=== PATIENT | male | born 1980 | race Caucasian/White ===

== ENCOUNTER 2016-04-09 | Emergency (ER) | payer OTHER ==
--- NOTE | 2016-04-09 13:59 | ED ---
General Adult HPI - General Chief complaint: Abdominal Pain Stated complaint: Flu, Abd Pain Time Seen by Provider: 04/09/16 13:47 Source: patient, RN notes reviewed Mode of arrival: ambulatory Limitations: no limitations - History of Present Illness Initial comments: Patient is a 36-year-old male who presents emergency room today with chief complaint of symptoms of nausea vomiting diarrhea over the last 4-5 days. He does admit that similar symptoms in the family over the last week. He states his symptoms seem to be improving. He states his had no nausea or vomiting today. States no diarrhea but still having some cramping abdominal pain. States he missed work over the week. Patient denies any other complaints associated symptoms. Patient denies any recent fever, chills, shortness of breath, chest pain, back pain, numbness or tingling, dysuria or hematuria, constipation, headaches or visual changes, or any other complaints. - Related Data Allergies Allergy/AdvReac Type Severity Reaction Status Date / Time No Known Allergies Allergy Verified 04/09/16 13:33 Review of Systems ROS Statement: Those systems with pertinent positive or pertinent negative responses have been documented in the HPI. ROS Other: All systems not noted in ROS Statement are negative. Past Medical History Past Medical History: No Reported History History of Any Multi-Drug Resistant Organisms: None Reported Past Surgical History: No Surgical Hx Reported Past Psychological History: No Psychological Hx Reported Smoking Status: Current every day smoker Past Alcohol Use History: Occasional Past Drug Use History: None Reported General Exam - General Exam Comments Initial Comments: General: The patient is awake and alert, in no distress, and does not appear acutely ill. Eye: Pupils are equal, round and reactive to light, extra-ocular movements are intact. No nystagmus. There is normal conjunctiva bilaterally. No signs of icterus. Ears, nose, mouth and throat: There are moist mucous membranes and no oral lesions. Neck: The neck is supple, there is no tenderness or JVD. Cardiovascular: There is a regular rate and rhythm. No murmur, rub or gallop is appreciated. Respiratory: Lungs are clear to auscultation, respirations are non-labored, breath sounds are equal. No wheezes, stridor, rales, or rhonchi. Gastrointestinal: Soft, non-distended, non-tender abdomen without masses or organomegaly noted. There is no rebound or guarding present. No CVA tenderness. Bowel sounds are unremarkable. Musculoskeletal: Normal ROM, no tenderness. Strength 5/5. Sensation intact. Pulses equal bilaterally 2+. Neurological: A&O x 3. CN II-XII intact, There are no obvious motor or sensory deficits. Coordination appears grossly intact. Speech is normal. Skin: Skin is warm and dry and no rashes or lesions are noted. Psychiatric: Cooperative, appropriate mood & affect, normal judgment. Limitations: no limitations Course Vital Signs 04/09/16 13:34 Temperature 97.6 F Pulse Rate 79 Respiratory 18 Rate Blood Pressure 144/72 O2 Sat by Pulse 97 Oximetry Medical Decision Making - Medical Decision Making Patient will be discharged home with medications of Zofran and Bentyl to use as needed. Advised to follow-up the family doctor return if any symptoms increase or worsen or for any other concerns. Disposition Clinical Impression: Nausea vomiting and diarrhea Disposition: HOME SELF-CARE Condition: Good Instructions: Acute Nausea and Vomiting (ED) Additional Instructions: Please use medication as discussed. Please follow-up with family doctor in the next 2 days of symptoms have not improved. Please return to emergency room if the symptoms increase or worsen or for any other concerns. Time of Disposition: 13:58
== END 2016-04-09 14:30 | disposition home or self-care (01) ==
CPT/HCPCS: 99283

== ENCOUNTER 2018-10-08 22:14 | Observation (INO) | payer OTHER ==
[2018-10-08] MEDS ORDERED: VANCOMYCIN IV PER PHARMACY 1 EACH MISC MISCELLANE PRN (23:34)
[2018-10-08] MEDS ORDERED: SODIUM CHLORIDE 0.9% 1,000 ML IV STA ×2 (23:34)
[2018-10-08] MEDS ORDERED: SODIUM CHLORIDE 0.9% 1,000 ML IV ONE (23:34)
--- NOTE | 2018-10-08 23:41 | ED ---
Upper Extremity HPI - General Chief Complaint: Extremity Injury, Upper Stated Complaint: Infection Time Seen by Provider: 10/08/18 22:47 Source: patient, RN notes reviewed, old records reviewed Mode of arrival: ambulatory Limitations: no limitations - History of Present Illness Initial Comments: This is a 38-year-old male the ER for evaluation. Patient comes in with postop issue. Patient has significant left pinky finger pain and swelling erythema and redness. Patient apparently had some surgical site, surgical site was repaired tenderness in his finger over a year ago now. No significant follow-up since. Patient denies any fevers. Does have some pain up into his Palm Complaint: Injury to:: left, finger -: days(s) Other Extremity Injury: Fingers: Left Other Injuries: none Handedness: left Place: home Severity scale (1-10): 7 Improves With: none Worsens With: none Associated Symptoms: denies other symptoms - Related Data Home Medications Medication Instructions Recorded Confirmed No Known Home Medications 04/09/16 10/08/18 Allergies Allergy/AdvReac Type Severity Reaction Status Date / Time No Known Allergies Allergy Verified 10/08/18 23:28 Review of Systems ROS Statement: Those systems with pertinent positive or pertinent negative responses have been documented in the HPI. ROS Other: All systems not noted in ROS Statement are negative. Past Medical History Past Medical History: No Reported History History of Any Multi-Drug Resistant Organisms: None Reported Past Surgical History: Orthopedic Surgery Past Psychological History: No Psychological Hx Reported Smoking Status: Current every day smoker Past Alcohol Use History: Occasional Past Drug Use History: Marijuana General Exam Limitations: no limitations General appearance: alert, in no apparent distress Head exam: Present: atraumatic, normocephalic, normal inspection Eye exam: Present: normal appearance, PERRL, EOMI. Absent: scleral icterus, conjunctival injection, periorbital swelling ENT exam: Present: normal exam, mucous membranes moist Neck exam: Present: normal inspection. Absent: tenderness, meningismus, lymphadenopathy Respiratory exam: Present: normal lung sounds bilaterally. Absent: respiratory distress, wheezes, rales, rhonchi, stridor Cardiovascular Exam: Present: regular rate, normal rhythm, normal heart sounds. Absent: systolic murmur, diastolic murmur, rubs, gallop, clicks GI/Abdominal exam: Present: soft, normal bowel sounds. Absent: distended, tenderness, guarding, rebound, rigid Extremities exam: Present: normal inspection, full ROM, normal capillary refill, other (Left Index finger swelling erythema and purulent drainage). Absent: tenderness, pedal edema, joint swelling, calf tenderness Back exam: Present: normal inspection Neurological exam: Present: alert, oriented X3, CN II-XII intact Psychiatric exam: Present: normal affect, normal mood Skin exam: Present: warm, dry, intact, normal color. Absent: rash Course Vital Signs 10/08/18 22:18 Temperature 97.8 F Pulse Rate 69 Respiratory 20 Rate Blood Pressure 117/71 O2 Sat by Pulse 96 Oximetry - Reevaluation(s) Reevaluation #1: 10/08/18 23:39 medical record is reviewed Reevaluation #2: 10/08/18 23:39 patient has pain control Medical Decision Making - Medical Decision Making 38 male the ER with postop infection of left Index finger. Patient will be admitted for IV antibiotics and orthopedic evaluation - Radiology Data Radiology results: report reviewed (X-ray hand negative for acute disease), image reviewed Disposition Clinical Impression: Infected puncture wound of left index finger, Cellulitis of left hand Disposition: ADMITTED IP TO THIS HOSP Condition: Good Is patient prescribed a controlled substance at d/c from ED?: No Referrals: Juan Carlos Blanchard MD [Primary Care Provider] - 1-2 days
[2018-10-08] MEDS ORDERED: KETOROLAC 30 MG/ML 1 ML VIAL IVP STA (23:58)
[2018-10-08] MEDS ORDERED: MORPHINE SULFATE 4 MG/ML SYRINGE IVP STA (23:58)
[2018-10-09] MEDS ORDERED: VANCOMYCIN 1,250 MG in SODIUM CHLORIDE 0.9% 250 ML IVPB ONE ×2
[2018-10-09 01:06] LABS: Basophils # (A) 0.1 k/uL (0-0.2); Basophils % (A) 1 %; Eosinophils # (A) 0.2 k/uL (0-0.7); Eosinophils % (A) 2 %; HCT 44.4 % (39.0-53.0); HGB 14.2 gm/dL (13.0-17.5); Lymphocytes # (A) 2.7 k/uL (1.0-4.8); Lymphocytes % (A) 28 %; MCH 30.6 pg (25.0-35.0); MCHC 31.8 g/dL (31.0-37.0); Mean Platelet Volume 6.9; Monocytes # (A) 0.5 k/uL (0-1.0); Monocytes % (A) 5 %; Neutrophils % (A) 63 %; Platelet Count 191 k/uL (150-450); RBC 4.63 m/uL (4.30-5.90); WBC 9.5 k/uL (3.8-10.6)
[2018-10-09 01:10] LABS: ALT 12 U/L (21-72); AST 23 U/L (17-59); African American GFR (CKD) >90 (>60 ml/min/1.73 sqM); Alkaline Phosphatase 65 U/L (38-126); Anion Gap 5 mmol/L; Blood Urea Nitrogen 14 mg/dL (9-20); Carbon Dioxide 27 mmol/L (22-30); Chloride 106 mmol/L (98-107); Glucose 81 mg/dL (74-99); Magnesium 2.1 mg/dL (1.6-2.3); Phosphorus 4.4 mg/dL (2.5-4.5); Potassium 4.1 mmol/L (3.5-5.1); Sodium 138 mmol/L (137-145); Total Bilirubin 0.3 mg/dL (0.2-1.3); Total Protein 6.6 g/dL (6.3-8.2)
--- NOTE | 2018-10-09 01:12 | XR ---
EXAM: XR Left Hand Complete, 3 or More Views CLINICAL HISTORY: Pain TECHNIQUE: Frontal, lateral and oblique views of the left hand. COMPARISON: No relevant prior studies available. FINDINGS: Bones/joints: No acute fracture or malalignment. Soft tissues: Soft tissue edema and trace gas in the index finger. No radiopaque foreign body. IMPRESSION: Soft tissue edema and trace gas in the index finger. No acute osseous abnormality.
[2018-10-09 01:14] LABS: INR 0.9 (<1.2); Partial Thromboplastin Time 23.8 sec (22.0-30.0); Prothrombin Time 10.2 sec (9.0-12.0)
[2018-10-09] MEDS: MORPHINE SULFATE 4 MG/ML SYRINGE IVP PRN ×2 (01:55→11:12)
[2018-10-09] MEDS ORDERED: NICOTINE 21MG/24HR PATCH TRANSDERM SCH (09:00)
[2018-10-09] MEDS ORDERED: VANCOMYCIN 1,250 MG in SODIUM CHLORIDE 0.9% 250 ML IVPB SCH ×2 (10:00→13:00)
[2018-10-09 10:12] VITALS: RESP 16
[2018-10-09 13:09] VITALS: BP 127/71; PULSE 54; TEMP 97.9
--- NOTE | 2018-10-09 13:49 | HP ---
HISTORY AND PHYSICAL CHIEF COMPLAINT: Infection in the left index finger. HISTORY OF PRESENT ILLNESS: This is the first admission for this 38-year-old white male. He injured his left hand with a radial saw roughly a month ago. He had surgery on it, and it is believed that he may have either a metallic or nylon foreign body. However, the wound has remained somewhat open and started to become more red, swollen and infected and oozing purulent material. He came into emergency room. It was felt that the site is probably infected. REVIEW OF SYSTEMS: He has had no fever, chills, neurologic problems, shortness of breath, cough, bronchitis, pneumonitis, asthma, hypertension, heart disease, murmurs, rheumatic fever, abdominal pain, nausea, vomiting, hematemesis, melena, hematochezia, jaundice, hematuria, renal failure, dysuria, frequency, diabetes, etc. Past medical history, family history, and personal and social histories are unremarkable. He is right-handed. He is not taking any medication. He is NOT ALLERGIC TO ANY MEDICATION. He has had no other surgery. He smokes about a pack and a half of cigarettes a day and he does work. PHYSICAL EXAMINATION: Blood pressure is 121/74 with a pulse of 78, respirations of 16, and he is afebrile. In general, he appears to be well developed, well nourished, in no acute distress. Skin color is normal. Skin is warm and dry. Lymph nodes are not enlarged. Head, ears, eyes, nose, mouth and throat are normal. Neck veins are not distended. Thyroid is not enlarged. Chest is clear. Cardiac exam is normal. Abdomen is soft and nontender. Extremities demonstrate an open and infected wound at the base of the left index finger and he has poor mobility in that finger. The tip is viable. Neurologically he is intact. IMPRESSION: Infected wound on the left index finger. PLAN: 1. Bed rest. 2. IV fluids. 3. IV antibiotics. 4. Consult with Infectious Disease and Orthopedics. MMODL / IJN: [id number] /
--- NOTE | 2018-10-09 14:01 | PN ---
PROGRESS NOTE DATE OF SERVICE: 10/09/2018. CHIEF COMPLAINT: Infected left index finger. HISTORY OF PRESENT ILLNESS: This gentleman is just about the same. He is still having quite a bit of discomfort. IV antibiotics have been started. PHYSICAL EXAMINATION: There is an open area in the palmar aspect of the left index finger which looks somewhat purulent, and there may be a foreign body visible. IMPRESSION: Infected left index finger after surgery for saw cut. PLAN: Continue with elevation, IV fluids, IV antibiotics, and consult with Orthopedics and Infectious Disease. MMODL / IJN: [id number] /
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
[2018-10-09 15:58] VITALS: BMI 23.5
--- NOTE | 2018-10-09 22:04 | CONS ---
CONSULTATION DATE OF SERVICE: 10/09/2018. REASON FOR CONSULTATION: Left index finger infection. HISTORY OF PRESENT ILLNESS: The patient is a 38-year-old, male who apparently did sustain injury to his left index finger in December of 2017 for which the patient was evaluated by hand surgeon at [facility]. The patient did have surgery done with a postop complication with an infection for which the patient says he received IV antibiotics for about a month. The patient is not very clear which exact bacteria was it or antibiotic he was receiving. Subsequently, did have 2 separate surgeries, one in March and one in April 2018. The patient is now coming to the [facility] ER with chief complaints of wound at the base of his left index finger from which the patient able to express some pus out. Has been complaining of pain to the left index finger, more of a throbbing pain 6 to 7/10, and no radiation. Currently with no significant surrounding swelling or redness. With these symptoms, the patient was evaluated by the ER physician. The patient did have x-rays of his left hand, which shows soft tissue edema and trace callus in the index finger. No radiopaque foreign body. The patient has been admitted to the hospital. Infectious disease and orthopedics has been consulted. The patient has been admitted. No fever has been recorded. The patient white count has been normal at 9.5 with no left shift and his creatinine is normal. The patient has been seen by orthopedic surgery who wanted the patient to follow up with his hand surgeon. REVIEW OF SYSTEMS: Positive points have been mentioned in HPI. Rest of the systems are negative. PAST MEDICAL HISTORY: Significant for left index finger injury with a postop complication with infection. PAST SURGICAL HISTORY: Multiple surgeries on left index finger at [facility]. SOCIAL HISTORY: Patient current everyday smoker. Occasionally drinks. Did admit to marijuana use. FAMILY HISTORY: No pertinent findings noticed. ALLERGIES: No known drug allergies. MEDICATIONS: Include the patient is currently on: Vancomycin 1250 mg every 8 hours. He is on nicotine patch, morphine sulfate, and Rocephin 1 g daily. PHYSICAL EXAMINATION: Blood pressure is 127/71 with a pulse of 54, temperature 97.9. He is 99% on room air. General description is a young male up in the bed in no distress. Respiratory system: Unlabored breathing. Clear to auscultation anteriorly. Heart S1, S2. Regular rate and rhythm. ABDOMEN: Soft, no tenderness. No guarding or rigidity. EXTREMITIES: No edema of the feet. Examination of the left hand index finger at the base of the palmar aspect did have small wound. I was unable to express any pus out. There was no redness. No foul smelling drainage. NEUROLOGICAL: Patient is awake, alert, oriented times three. Mood and affect normal. LABS: Blood culture obtained. Currently pending. Hemoglobin is 14, white count 9.5. BUN of 14, creatinine 0.97. DIAGNOSTIC IMPRESSION AND PLAN: Patient with left index finger with multiple surgeries in the outpatient setting and did have a history of infection requiring IV antibiotic. However, the patient is not sure about the name, now presents to the hospital with drainage. I was unable to express any pus out. There was no redness. No foul smelling drainage. Possibly soft tissue infection from a gram-positive skin marie. Clinically, no evidence of any deep infection in this patient with no fever or elevated white count. PLAN: 1. The patient is currently on IV vancomycin pharmacy to dose, target of 15 that should be continued while watching his kidney function closely. However, the patient says he has been referred to his orthopedic surgeon by Ortho. They will not do any surgery for him and he wants to go home. In that case, antibiotic will be switched over to Bactrim DS 1 b.i.d. for 10 days with instructions to follow up with his surgeon BARTOLO. 2. Local wound care with Aquacel Silver dressing. Thank you for this consultation. Prescription sent to the pharmacy. MMODL / IJN: [id number] /
== END 2018-10-09 16:20 | disposition left against medical advice (07) ==
LOC: EC 22:14 → 4SSUR 23:34 → 4MS4W 10-09 06:17
PROVIDERS: ADMIT Family Medicine; ATTEND Family Medicine
DX: L03.012 Cellulitis of left finger (principal); F17.210 Nicotine dependence, cigarettes, uncomplicated; Z98.890 Other specified postprocedural states
CPT/HCPCS: 96376 ×2; 96365; 96366; 96367; 96375; 99285; 80053; 83735; 84100; 85025; 85610; 85730; 87040; 73130; G0378 ×2; S4990; J3370; J2270; J0696; J1885

== ENCOUNTER 2019-09-03 17:51 | Emergency (ER) | payer OTHER ==
[2019-09-03] MEDS ORDERED: DIPH,PERTUS(ACELL)TETVAC-LF 0.5 ML VIAL IM ONE (17:55)
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
[2019-09-03 18:09] VITALS: RESP 18
[2019-09-03 18:30] LABS: ALT 17 U/L (4-49); AST 40 U/L (17-59); African American GFR (CKD) >90 (>60 ml/min/1.73 sqM); Albumin 4.2 g/dL (3.5-5.0); Alkaline Phosphatase 68 U/L (38-126); Amylase 89 U/L (30-110); Anion Gap 8 mmol/L; Blood Urea Nitrogen 13 mg/dL (9-20); Calcium 8.6 mg/dL (8.4-10.2); Carbon Dioxide 21 mmol/L (22-30); Chloride 105 mmol/L (98-107); Glucose 98 mg/dL (74-99); Non-African American GFR(CKD) >90 (>60 ml/min/1.73 sqM); Sodium 134 mmol/L (137-145); Total Bilirubin 0.6 mg/dL (0.2-1.3); Total Protein 7.1 g/dL (6.3-8.2)
[2019-09-03 18:37] LABS: Creatine Kinase 93 U/L (55-170)
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
[2019-09-03 18:41] LABS: Alcohol 110 mg/dL; Potassium 3.8 mmol/L (3.5-5.1)
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
[2019-09-03 18:51] LABS: Troponin I <0.012 ng/mL (0.000-0.034)
[2019-09-03 19:00] LABS: Basophils % (A) 1 %; Eosinophils # (A) 0.1 k/uL (0-0.7); Eosinophils % (A) 1 %; HCT 42.5 % (39.0-53.0); HGB 14.3 gm/dL (13.0-17.5); Lymphocytes # (A) 1.3 k/uL (1.0-4.8); Lymphocytes % (A) 21 %; MCH 33.1 pg (25.0-35.0); MCHC 33.5 g/dL (31.0-37.0); MCV 98.7 fL (80.0-100.0); Mean Platelet Volume 7.6; Monocytes # (A) 0.3 k/uL (0-1.0); Monocytes % (A) 6 %; Neutrophils # (A) 4.4 k/uL (1.3-7.7); Neutrophils % (A) 70 %; Platelet Count 180 k/uL (150-450); RBC 4.31 m/uL (4.30-5.90); RDW 12.6 % (11.5-15.5); WBC 6.3 k/uL (3.8-10.6)
[2019-09-03 19:16] LABS: Partial Thromboplastin Time 23.4 sec (22.0-30.0); Prothrombin Time 10.1 sec (9.0-12.0)
[2019-09-03 19:54] LABS: Appearance,Urine Clear (Clear); Bilirubin,Urine Negative (Negative); Blood,Urine Negative (Negative); Color,Urine Yellow; Glucose,Urine (UA) Negative (Negative); Ketones,Urine Negative (Negative); Leukocyte Esterase,Urine Negative (Negative); Nitrite,Urine Negative (Negative); Protein,Urine Negative (Negative); Specific Gravity,Urine 1.005 (1.001-1.035); Urobilinogen,Urine <2.0 mg/dL (<2.0)
[2019-09-03 19:55] LABS: Amphetamine Screen,Urine Detected (NotDetected); Barbiturate Screen,Urine Not Detected (NotDetected); Benzodiazepines Screen,Urine Not Detected (NotDetected); Cocaine Screen,Urine Not Detected (NotDetected); Methadone Screen, Urine Not Detected (NotDetected); Opiate Screen,Urine Not Detected (NotDetected); Oxycodone Screen, Urine Not Detected (NotDetected); Phencyclidine Screen,Urine Not Detected (NotDetected); Tricyclic Antidepressant,Urine Not Detected (NotDetected); Urn Cannabinoid Scrn Detected (NotDetected)
[2019-09-03 19:59] VITALS: BP 137/96; PULSE 83; TEMP 97.6
== END 2019-09-03 19:30 | disposition home or self-care (01) ==
LOC: EC 17:51
DX: S01.01XA Laceration without foreign body of scalp, initial encounter (principal); F17.200 Nicotine dependence, unspecified, uncomplicated; Z98.890 Other specified postprocedural states; V43.53XA Car driver injured in collision with pick-up truck in traffic accident, initial encounter; Y92.410 Unspecified street and highway as the place of occurrence of the external cause; Y93.89 Activity, other specified
CPT/HCPCS: 12001; 36415; 70450; 71045; 72125; 72170; 80053; 80306; 80320; 81003; 82150; 82550; 82553; 83605; 83690; 84484; 85025; 85610; 85730; 86850; 86900; 86901; 99291

== ENCOUNTER 2021-04-16 09:43 | Inpatient (IN) | payer OTHER ==
[2021-04-16] MEDS ORDERED: KETOROLAC 30 MG/ML 1 ML VIAL IVP STA (10:28)
[2021-04-16] MEDS ORDERED: HYDROmorphone 0.5 MG/0.5 ML SYRINGE IVP STA (10:44)
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
[2021-04-16 10:55] LABS: Basophils # (A) 0.1 k/uL (0-0.2); Basophils % (A) 1 %; Eosinophils # (A) 0.2 k/uL (0-0.7); Eosinophils % (A) 1 %; HCT 46.2 % (39.0-53.0); HGB 15.4 gm/dL (13.0-17.5); Lymphocytes # (A) 1.2 k/uL (1.0-4.8); Lymphocytes % (A) 9 %; MCH 32.8 pg (25.0-35.0); MCHC 33.3 g/dL (31.0-37.0); MCV 98.5 fL (80.0-100.0); Mean Platelet Volume 7.4; Monocytes # (A) 0.4 k/uL (0-1.0); Monocytes % (A) 3 %; Neutrophils # (A) 11.1 k/uL (1.3-7.7); Neutrophils % (A) 84 %; Platelet Count 214 k/uL (150-450); RBC 4.69 m/uL (4.30-5.90); RDW 12.7 % (11.5-15.5); WBC 13.2 k/uL (3.8-10.6)
[2021-04-16 11:14] LABS: ALT 12 U/L (4-49); AST 21 U/L (17-59); African American GFR (CKD) >90 (>60 ml/min/1.73 sqM); Albumin 4.2 g/dL (3.5-5.0); Alkaline Phosphatase 82 U/L (38-126); Anion Gap 7 mmol/L; Blood Urea Nitrogen 9 mg/dL (9-20); Calcium 9.1 mg/dL (8.4-10.2); Carbon Dioxide 28 mmol/L (22-30); Chloride 104 mmol/L (98-107); Glucose 109 mg/dL (74-99); Non-African American GFR(CKD) >90 (>60 ml/min/1.73 sqM); Potassium 4.5 mmol/L (3.5-5.1); Sodium 139 mmol/L (137-145); Total Bilirubin 0.7 mg/dL (0.2-1.3); Total Protein 7.2 g/dL (6.3-8.2)
[2021-04-16 11:20] LABS: Appearance,Urine Clear (Clear); Bilirubin,Urine Negative (Negative); Blood,Urine Negative (Negative); Color,Urine Yellow; Glucose,Urine (UA) Negative (Negative); Ketones,Urine Negative (Negative); Leukocyte Esterase,Urine Negative (Negative); Nitrite,Urine Negative (Negative); PH, Urine 5.5 (5.0-8.0); Protein,Urine Negative (Negative); Specific Gravity,Urine 1.017 (1.001-1.035); Urobilinogen,Urine <2.0 mg/dL (<2.0)
[2021-04-16 11:23] LABS: Amphetamine Screen,Urine Not Detected (NotDetected); Barbiturate Screen,Urine Not Detected (NotDetected); Benzodiazepines Screen,Urine Not Detected (NotDetected); Cocaine Screen,Urine Not Detected (NotDetected); Methadone Screen, Urine Not Detected (NotDetected); Opiate Screen,Urine Not Detected (NotDetected); Oxycodone Screen, Urine Not Detected (NotDetected); Phencyclidine Screen,Urine Not Detected (NotDetected); Tricyclic Antidepressant,Urine Not Detected (NotDetected); Urn Cannabinoid Scrn Detected (NotDetected)
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
[2021-04-16] MEDS ORDERED: PIPERACILLIN-TAZOBACTAM 3.375 GM in SODIUM CHLORIDE 0.9% 100 ML IVPB STA (13:17)
[2021-04-16] MEDS: MORPHINE SULFATE 4 MG/ML SYRINGE IVP PRN ×3 (16:51→23:26)
[2021-04-16] MEDS: NICOTINE 14MG/24HR PATCH TRANSDERM SCH (16:53)
[2021-04-16] MEDS: PIPERACILLIN-TAZOBACTAM 3.375 GM in SODIUM CHLORIDE 0.9% 100 ML IVPB SCH (23:28)
[2021-04-17] MEDS: MORPHINE SULFATE 4 MG/ML SYRINGE IVP PRN ×3 (02:04→07:31)
[2021-04-17] MEDS: PIPERACILLIN-TAZOBACTAM 3.375 GM in SODIUM CHLORIDE 0.9% 100 ML IVPB SCH ×2 (04:53→17:46)
[2021-04-17] MEDS ORDERED: ONDANSETRON 4 MG/2 ML VIAL IVP ONE ×2 (07:27→13:40)
[2021-04-17] MEDS ORDERED: HYDROmorphone 0.5 MG/0.5 ML SYRINGE IVP PRN (07:27)
[2021-04-17] MEDS ORDERED: LIDOCAINE 1% (10MG/ML) FOR IV START INTRADERMA PRN (07:27)
[2021-04-17] MEDS ORDERED: DEXAMETHASONE SOD PHOSPHATE 4 MG/ML 1 ML VIAL IV ONE (07:27)
[2021-04-17] MEDS: NICOTINE 14MG/24HR PATCH TRANSDERM SCH (07:34)
[2021-04-17] MEDS: LACTATED RINGERS 1,000 ML IV SCH (07:35)
[2021-04-17] MEDS: HYDROmorphone 1 MG/ML 1 ML SYRINGE IVP PRN ×4 (09:59→21:57)
[2021-04-17] MEDS ORDERED: KETOROLAC 30 MG/ML 1 ML VIAL IVP PRN (10:00)
--- NOTE | 2021-04-17 11:31 | P.GSHP ---
History of Present Illness H&P Date: 04/17/21 CHIEF COMPLAINT: Perianal pain HISTORY OF PRESENT ILLNESS: This is a 41-year-old male who presents to the hospital with complaints of 2 days of her anal pain. He reports the pain is worsening over the last 24 hours. He reports pain worsens with straining to have a bowel movement. He has been having loose stools. He's never had an abscess this before. He also noted an abscess on the neck area about a centimeter in size. Both areas there is no drainage noted. They are very tender with palpation. Patient reports a prior abscess on his right forearm. This appeared after his new tattoos. Denies any history of diabetes. Computed tomography scan abdomen and pelvis shows fluid collection within the anal/rectal region measuring 2.1 cm which may reflect abscess. Patient started on IV an tibiotics. PAST MEDICAL HISTORY: none PAST SURGICAL HISTORY: See list. MEDICATIONS: See list. ALLERGIES: See list. SOCIAL HISTORY: No illicit drug use. REVIEW OF SYSTEMS: CONSTITUTIONAL: Denies fever or chills. HEENT: Denies blurred vision, vision changes, or eye pain. Denies hemoptysis CARDIOVASCULAR: Denies chest pain or pressure. RESPIRATORY: No shortness of breath. GASTROINTESTINAL: See HPI for pertinent findings HEMATOLOGIC: Denies bleeding disorders. GENITOURINARY: Denies any blood in urine or increased urinary frequency. SKIN: Denies pruitis. Denies rash. PHYSICAL EXAM: VITAL SIGNS: Reviewed GENERAL: Well-developed in no acute distress. HEENT: No sclera icterus. Extraocular movements grossly intact. Moist buccal mucosa. Head is atraumatic, normocephalic. No nasal drainage. ABDOMEN: Soft. Nondistended. Nontender NEUROLOGIC: Alert and oriented. Cranial nerves II through XII grossly intact. Genitalia exam: Patient has tenderness to palpation of the anus left side with a 1 cm area of induration. No erythema. No drainage noted. Skin exam: Patient has a 1 cm abscess on the posterior aspect of the neck with a medina noted. No drainage. Tender with palpation and indurated and erythema noted LABORATORY DATA: WBC 13.2 hemoglobin 15.4 platelets 214 Sodium 139 potassium 4.5 BUN 9 creatinine 0.94 LFTs normal UA negative Drug screen marijuana detected COVID-19 not detected IMAGING: Computed tomography scan abdomen and pelvis shows fluid collection within the anal/rectal region measuring 2.1 cm which may reflect abscess ASSESSMENT: 1. Perirectal abscess 2. Abscess noted on the posterior of the neck PLAN: -Patient scheduled for incision and drainage of perirectal abscess today with Dr. Segura -Continue antibiotics -Continue supportive care -Consult medicine for medical management Physician Lap Regulator note has been reviewed by physician. Signing provider agrees with the documented findings, assessment, and plan of care. Past Medical History Past Medical History: No Reported History History of Any Multi-Drug Resistant Organisms: None Reported Past Surgical History: Orthopedic Surgery Additional Past Surgical History / Comment(s): December 2017 left index finger tendon cut by accident with saw, IV antibiotics outpatient due to infection, 2018 surgery performed at [facility] to repair left index finger tendon-per patient the surgical wound never healed correctly Past Psychological History: No Psychological Hx Reported Smoking Status: Current every day smoker Past Alcohol Use History: Daily Additional Past Alcohol Use History / Comment(s): Patient reports drinking more than 14 ETOH drinks per week, reports he has never withdrawn from ETOH Past Drug Use History: Marijuana Additional Drug Use History / Comment(s): Occasional recreational marijuana use Medications and Allergies Home Medications Medication Instructions Recorded Confirmed Type No Known Home Medications 04/16/21 04/16/21 History Allergies Allergy/AdvReac Type Severity Reaction Status Date / Time No Known Allergies Allergy Verified 04/16/21 11:11 Surgical - Exam Vital Signs Temp Pulse Resp BP Pulse Ox 98.8 F 83 18 124/84 100 04/16/21 09:43 04/16/21 09:43 04/16/21 09:43 04/16/21 09:43 04/16/21 09:43 Results - Labs 04/16/21 10:44 04/16/21 10:44 Abnormal Lab Results - Last 24 Hours (Table) 04/16/21 Range/Units 10:44 U Marijuana (THC) Screen Detected H (NotDetected)
--- NOTE | 2021-04-17 11:38 | P.CONS ---
History of Present Illness - Reason for Consult Perianal abscess - History of Present Illness Patient wasn't a 11-year-old male came in with pain in the rectal area about 2 days ago found to have a perianal lapses patient is presently on Zosyn patient also has another abscess on the left occipital just above the neck area an abscess in in duration. Patient denied any history of MRSA patient does smoke. Patient does have leukocytosis no fever at this time. REVIEW OF SYSTEMS: CONSTITUTIONAL: No fever, no malaise, no fatigue. HEENT: No recent visual problems or hearing problems. Denied any sore throat. CARDIOVASCULAR: No chest pain, orthopnea, PND, no palpitations, no syncope. PULMONARY: No shortness of breath, no cough, no hemoptysis. GASTROINTESTINAL: No diarrhea, no nausea, no vomiting, no abdominal pain. NEUROLOGICAL: No headaches, no weakness, no numbness. HEMATOLOGICAL: Denies any bleeding or petechiae. GENITOURINARY: Denies any burning micturition, frequency, or urgency. MUSCULOSKELETAL/RHEUMATOLOGICAL: Denies any joint pain, swelling, or any muscle pain. ENDOCRINE: Denies any polyuria or polydipsia. The rest of the 14-point review of systems is negative. PHYSICAL EXAMINATION: GENERAL: The patient is alert and oriented x3, not in any acute distress. Well developed, well nourished. HEENT: Pupils are round and equally reacting to light. EOMI. No scleral icterus. No conjunctival pallor. Normocephalic, atraumatic. No pharyngeal erythema. No thyromegaly. CARDIOVASCULAR: S1 and S2 present. No murmurs, rubs, or gallops. PULMONARY: Chest is clear to auscultation, no wheezing or crackles. ABDOMEN: Soft, nontender, nondistended, normoactive bowel sounds. No palpable organomegaly. MUSCULOSKELETAL: No joint swelling or deformity. EXTREMITIES: No cyanosis, clubbing, or pedal edema. NEUROLOGICAL: Gross neurological examination did not reveal any focal deficits. SKIN: A 2.5 cm. and about 1.5 cm in duration or abscess in the left neck area posteriorly Assessment and plan -Perirectal abscess: Patient will undergo incision and drainage continue with antibiotics -Posterior neck abscess may need incision and drainage as well. -Leukocytosis secondary to assessment #14 nicotine use and marijuana use: Counseling was patient presently has a nicotine patch patient smokes about 2 packs of cigarettes per day DVT prophylaxis: As per primary service Past Medical History Past Medical History: No Reported History History of Any Multi-Drug Resistant Organisms: None Reported Past Surgical History: Orthopedic Surgery Additional Past Surgical History / Comment(s): December 2017 left index finger tendon cut by accident with saw, IV antibiotics outpatient due to infection, 2018 surgery performed at [facility] to repair left index finger tendon-per patient the surgical wound never healed correctly Past Psychological History: No Psychological Hx Reported Smoking Status: Current every day smoker Past Alcohol Use History: Daily Additional Past Alcohol Use History / Comment(s): Patient reports drinking more than 14 ETOH drinks per week, reports he has never withdrawn from ETOH Past Drug Use History: Marijuana Additional Drug Use History / Comment(s): Occasional recreational marijuana use Medications and Allergies Home Medications Medication Instructions Recorded Confirmed Type No Known Home Medications 04/16/21 04/16/21 History Allergies Allergy/AdvReac Type Severity Reaction Status Date / Time No Known Allergies Allergy Verified 04/16/21 11:11 Physical Exam Vitals: Vital Signs Temp Pulse Pulse Resp BP BP Pulse Ox 04/17/21 02:00 98.7 F 58 L 17 120/70 95 04/16/21 19:38 97.9 F 73 18 118/67 96 04/16/21 17:51 78 18 132/72 100 04/16/21 15:30 74 18 128/80 100 Intake and Output 04/16/21 04/17/21 04/17/21 22:59 06:59 14:59 Other: # Voids 1 Results CBC & Chem 7: 04/16/21 10:44 04/16/21 10:44
[2021-04-17] MEDS: FAMOTIDINE 20 MG TAB PO SCH ×2 (11:56→21:56)
[2021-04-17] MEDS ORDERED: LACTATED RINGERS 1,000 ML IV ONE (13:19)
[2021-04-17] MEDS ORDERED: DEXAMETHASONE SOD PHOSPHATE 4 MG/ML 1 ML VIAL IVP ONE (13:40)
[2021-04-17] MEDS ORDERED: KETOROLAC 15 MG/ML 1 ML VIAL ONE (15:10)
[2021-04-17] MEDS ORDERED: fentaNYL (PF) 50 MCG/ML 2 ML AMP ONE (15:10)
[2021-04-17] MEDS ORDERED: LIDOCAINE 1% INJ 10MG/ML (20 ML MDV) ONE (15:10)
[2021-04-17] MEDS ORDERED: SUCCINYLCHOLINE CHLORIDE 100 MG/5 ML SYR IV ONE (15:10)
[2021-04-17] MEDS ORDERED: PROPOFOL 10 MG/ML 20 ML VIAL IV ONE (15:10)
[2021-04-17] MEDS ORDERED: MIDAZOLAM 2 MG/2 ML VIAL ONE (15:10)
--- NOTE | 2021-04-17 15:58 | P.OP ---
Date of Procedure: 04/17/21 Preoperative Diagnosis: Perirectal abscess Infected sebaceous cyst posterior neck Postoperative Diagnosis: Perirectal abscess Infected sebaceous cyst posterior neck Procedure(s) Performed: Incision and drainage of perirectal abscess Incision and drainage of sebaceous cyst abscess posterior neck Anesthesia: KATY Surgeon: Oziel Segura Estimated Blood Loss (ml): 5 Pathology: other (Culture) Condition: stable Disposition: PACU Description of Procedure: The patient's placed on the operating table in the prone position after receiving general anesthesia. His anus was prepped and draped usual sterile fashion. Patient had a perirectal abscess located at the 12 o'clock position. Using 11 blade the abscess was incised. Abscess was drained. The abscess cavity was cultured. The the perirectal abscess was then packed with wet-to-dry Kerlix. The patient also had a infected sebaceous cyst on his posterior neck. The area of induration measured approximately 2.5 cm diameter. The air was incised. Some purulent fluid was removed. Sterile dressing applied. Patient tolerated the procedure well. He was sent to recovery room in stable condition.
[2021-04-18] MEDS: PIPERACILLIN-TAZOBACTAM 3.375 GM in SODIUM CHLORIDE 0.9% 100 ML IVPB SCH ×2 (01:04→08:36)
[2021-04-18] MEDS: HYDROmorphone 1 MG/ML 1 ML SYRINGE IVP PRN ×2 (02:12→07:42)
[2021-04-18] MEDS: LACTATED RINGERS 1,000 ML IV SCH (07:39)
[2021-04-18 08:27] LABS: HCT 44.2 % (39.0-53.0); HGB 14.5 gm/dL (13.0-17.5); MCH 32.9 pg (25.0-35.0); MCHC 32.8 g/dL (31.0-37.0); MCV 100.4 fL (80.0-100.0); Mean Platelet Volume 7.3; Platelet Count 227 k/uL (150-450); RDW 12.6 % (11.5-15.5); WBC 12.9 k/uL (3.8-10.6)
[2021-04-18] MEDS: FAMOTIDINE 20 MG TAB PO SCH (08:36)
[2021-04-18] MEDS: NICOTINE 14MG/24HR PATCH TRANSDERM SCH (08:36)
--- NOTE | 2021-04-18 09:53 | P.PN ---
Subjective Patient wasn't a 11-year-old male came in with pain in the rectal area about 2 days ago found to have a perianal abscess patient is presently on Zosyn patient also has another abscess on the left occipital just above the neck area an abscess in in duration. Patient denied any history of MRSA patient does smoke. Patient does have leukocytosis no fever at this time. Patient underwent incision and drainage for perirectal abscess as well as infe cted sebaceous cyst in back of the neck. The patient is being discharged today patient can be discharged on 10 days of Augmentin. Will follow-up on the cultures. Patient pain is better is passing gas. Constitutional: Denied any fatigue denied any fever. Cardio vascular: denied any chest pain, palpitations Gastrointestinal denied any nausea vomiting Pulmonary: Denied any shortness of breath cough Neurologic denied any new focal deficits All inpatient medications were reviewed and appropriate changes in these medications as dictated in the interval history and assessment and plan. PHYSICAL EXAMINATION: GENERAL: The patient is alert and oriented x3, not in any acute distress. Well developed, well nourished. HEENT: Pupils are round and equally reacting to light. EOMI. No scleral icterus. No conjunctival pallor. Normocephalic, atraumatic. No pharyngeal erythema. No thyromegaly. CARDIOVASCULAR: S1 and S2 present. No murmurs, rubs, or gallops. PULMONARY: Chest is clear to auscultation, no wheezing or crackles. ABDOMEN: Soft, nontender, nondistended, normoactive bowel sounds. No palpable organomegaly. MUSCULOSKELETAL: No joint swelling or deformity. EXTREMITIES: No cyanosis, clubbing, or pedal edema. NEUROLOGICAL: Gross neurological examination did not reveal any focal deficits. SKIN: Posterior neck postsurgical wound as well as perianal area are postsurgical abdominal Assessment and plan -Perirectal abscess: Is post incision and drainage continue with Augmentin -Posterior neck abscess status post incision and drainage as well. -Leukocytosis secondary to assessment #1 Objective - Vital Signs Vital signs: Vital Signs Temp 97.8 F 04/18/21 07:26 Pulse 62 04/18/21 07:26 Resp 18 04/18/21 07:26 BP 107/62 04/18/21 07:26 Pulse Ox 95 04/18/21 07:26 Intake & Output 04/17/21 04/18/21 04/18/21 18:59 06:59 18:59 Intake Total 450 200 180 Output Total 5 Balance 445 200 180 Intake: IV 350 Intake, IV Titration 200 Amount Piperacillin-Tazobactam 3 200 .375 gm In Sodium Chloride 0.9% 100 ml @ 25 mls/hr IVPB Q8H [facility] Rx#: [id number] Oral 100 180 Output: Estimated Blood Loss 5 Other: Voiding Method Toilet # Voids 2 1 - Labs CBC & Chem 7: 04/18/21 07:23 04/16/21 10:44 Labs: Abnormal Lab Results - Last 24 Hours (Table) 04/18/21 Range/Units 07:23 WBC 12.9 H (3.8-10.6) k/uL MCV 100.4 H (80.0-100.0) fL Microbiology - Last 24 Hours (Table) 04/17/21 15:50 Gram Stain - Preliminary Rectum Wound Culture - Preliminary 04/17/21 15:50 Anaerobic Culture - Preliminary Rectum
[2021-04-18] MEDS ORDERED: HYDROcodone/APAP 5-325MG 1 EACH TAB PO PRN (10:56)
--- NOTE | 2021-04-18 12:49 | P.DS ---
Providers Date of admission: 04/16/21 13:54 Expected date of discharge: 04/18/21 Attending physician: Oziel Segura Consults: 04/16/21 16:39 Consult Physician Routine Consulting Provider: Holly Rodney Consult Reason/Comments: Management Do you want consulting provider notified?: Yes Primary care physician: Juan Carlos Blanchard Hospital Course: Discharge diagnosis 1. Perirectal abscess 2. Infected sebaceous cyst posterior neck Hospital course This is a 41-year-old male who presents to the hospital with complaints of 2 days of her anal pain. He reports the pain is worsening over the last 24 hours. He reports pain worsens with straining to have a bowel movement. He has been having loose stools. He's never had an abscess this before. He also noted an abscess on the neck area about a centimeter in size. Both areas there is no drainage noted. They are very tender with palpation. Patient reports a prior abscess on his right forearm. This appeared after his new tattoos. Denies any history of diabetes. Computed tomography scan abdomen and pelvis shows fluid collection within the anal/rectal region measuring 2.1 cm which may reflect abscess. Patient started on IV antibiotics. Patient is status post incision and drainage of perirectal abscess and incision and drainage of sebaceous cyst abscess posterior neck. Patient tolerated surgery well. His pain is controlled. He is tolerating diet. He has been up and ambulating. He is afebrile. He is stable for discharge. Patient discharged with antibiotic. Culture results are pending at discharge. Patient is stable for discharge. Please refer to chart for any further details. Physician Drywall Mechanic note has been reviewed by physician. Signing provider agrees with the documented findings, assessment, and plan of care. Patient Condition at Discharge: Stable Plan - Discharge Summary Discharge Rx Participant: Yes New Discharge Prescriptions: New HYDROcodone/APAP 5-325MG [[place] 5-325] 1 tab PO Q6HR PRN 3 Days #12 tab PRN Reason: Pain Amoxicillin/Potassium Clav [Augmentin 875-125 Tablet] 1 tab PO Q12HR 10 Days #20 tab Docusate [Colace] 100 mg PO BID #30 capsule Discharge Medication List Amoxicillin/Potassium Clav [Augmentin 875-125 Tablet] 1 tab PO Q12HR 10 Days #20 tab 04/18/21 [Rx] Docusate [Colace] 100 mg PO BID #30 capsule 04/18/21 [Rx] HYDROcodone/APAP 5-325MG [[place] 5-325] 1 tab PO Q6HR PRN 3 Days #12 tab 04/18/21 [Rx] Follow up Appointment(s)/Referral(s): Juan Carlos Blanchard MD [Primary Care Provider] - 1-2 days Oziel Segura MD [STAFF PHYSICIAN] - 1 Week Activity/Diet/Wound Care/Special Instructions: No driving while taking [place] No lifting over 10 pounds You may shower. No soaking or tub baths for 2 weeks Very light activity until you are reevaluated at your follow up appointment with your surgeon Discharge Disposition: HOME SELF-CARE
[2021-04-18 14:05] VITALS: BP 120/70; PULSE 74; RESP 17; TEMP 98.1
== END 2021-04-18 14:40 | disposition home or self-care (01) | DRG 394 ==
LOC: EC 09:43 → 4SSUR 13:54
PROVIDERS: ADMIT Surgery; ATTEND Surgery
PROC: 0D9P3ZZ Drainage of Rectum, Percutaneous Approach (ICD-10-PCS; principal; 2021-04-17 14:45)
DX: K61.2 Anorectal abscess (principal); L02.11 Cutaneous abscess of neck; D72.829 Elevated white blood cell count, unspecified; L72.3 Sebaceous cyst; F17.210 Nicotine dependence, cigarettes, uncomplicated; Z20.822 Contact with and (suspected) exposure to COVID-19
CPT/HCPCS: 36415; 72193; 80053; 80306; 81003; 85025; 85027; 87070; 87075; 87077; 87186; 87205; 87635; 96374; 96375; 99285

== ENCOUNTER 2024-09-10 06:58 | Emergency (ER) | payer OTHER ==
[2024-09-10 07:01] VITALS: BP 163/97; PULSE 89; RESP 18; TEMP 98.8
--- NOTE | 2024-09-10 07:15 | ED ---
General Adult HPI - General Chief complaint: Extremity Injury, Upper Stated complaint: Rt shoulder pain Time Seen by Provider: 09/10/24 07:00 Source: patient, RN notes reviewed, old records reviewed Mode of arrival: ambulatory Limitations: no limitations - History of Present Illness Initial comments: 44-year-old male presenting for evaluation of right shoulder pain. Pain is worse with range of motion. Pain has been intermittent over the past 1 year. Patient noted that he had a popping sensation in his right shoulder about 1 year ago while lifting a heavy toolbox. He has had intermittent pain since that time. No chest pain or difficulty breathing. Pain is predominantly in the anterior upper shoulder. No fever. - Related Data Previous Rx's Medication Instructions Recorded Ibuprofen [Motrin] 600 mg PO Q8HR PRN #24 tab 09/10/24 Allergies Allergy/AdvReac Type Severity Reaction Status Date / Time No Known Allergies Allergy Verified 09/10/24 07:01 Review of Systems ROS Statement: Those systems with pertinent positive or pertinent negative responses have been documented in the HPI. ROS Other: All systems not noted in ROS Statement are negative. Past Medical History Past Medical History: No Reported History Additional Past Medical History / Comment(s): HX OF PERIRECTAL ABSCESS WITH SURGERY & SEBACEOUS CYST ON NECK REMOVED 04/17/21., OCCASIONAL RECTAL BLOOD History of Any Multi-Drug Resistant Organisms: None Reported Past Surgical History: Orthopedic Surgery Additional Past Surgical History / Comment(s): 2018 left index finger tendon injury with saw, IV antibiotics outpatient due to infection, 2019 - repair left index finger tendon- the surgical wound never healed correctly ., 04/17/21 reece- rectal abscess & I&D sebaceous cyst on neck. Past Anesthesia/Blood Transfusion Reactions: No Reported Reaction Past Psychological History: No Psychological Hx Reported Smoking Status: Current every day smoker, Heavy tobacco smoker Past Alcohol Use History: Occasional Past Drug Use History: Marijuana - Past Family History Mother Family Medical History: No Reported History General Exam Limitations: no limitations General appearance: alert, in no apparent distress Head exam: Present: atraumatic, normocephalic Eye exam: Present: normal appearance, PERRL ENT exam: Present: normal exam Neck exam: Present: normal inspection. Absent: tenderness, meningismus Respiratory exam: Present: normal lung sounds bilaterally. Absent: respiratory distress, wheezes Cardiovascular Exam: Present: regular rate, normal rhythm GI/Abdominal exam: Present: soft. Absent: distended, tenderness, guarding Extremities exam: Present: tenderness (Tenderness over the anterior shoulder, AC joint), normal capillary refill, other (2+ radial pulse on the right). Absent: full ROM (Range of motion limited in the right shoulder secondary to pain) Neurological exam: Present: alert, oriented X3, CN II-XII intact. Absent: motor sensory deficit Psychiatric exam: Present: normal affect, normal mood Course Vital Signs 09/10/24 06:58 Temperature 98.8 F Pulse Rate 89 Respiratory 18 Rate Blood Pressure 163/97 O2 Sat by Pulse 98 Oximetry Medical Decision Making - Medical Decision Making Was pt. sent in by a medical professional or institution (, CATE, SOLID WASTE COLLECTION WORKER, urgent care, hospital, or care home...) When possible be specific @ -No Did you speak to anyone other than the patient for history (EMS, parent, family, police, friend...)? What history was obtained from this source @ -No Did you review nursing and triage notes (agree or disagree)? Why? @ -I reviewed and agree with nursing and triage notes Were old charts reviewed (outside hosp., previous admission, EMS record, old EKG, old radiological studies, urgent care reports/EKG's, care home records)? Report findings @ -No old charts were reviewed Differential Musculoskeletal Muscular strain, contusion, ligament sprain, fracture, arthritis, septic arthritis, bursitis, cellulitis, muscle spasm, nerve compression, DVT, arterial occlusion, herpes zoster, electrolyte abnormality, tumor.... This is not meant to be in all inclusive list EKG interpreted by me (3pts min.). @ -As above X-rays interpreted by me (1pt min.). @X-ray of the right shoulder negative for displaced fracture or dislocation. CT interpreted by me (1pt min.). @ -None done U/S interpreted by me (1pt. min.). @ -None done What testing was considered but not performed or refused? (CT, X-rays, U/S, labs)? Why? @ -None What meds were considered but not given or refused? Why? @ -None Did you discuss the management of the patient with other professionals (professionals i.e. , CATE, SOLID WASTE COLLECTION WORKER, lab, RT, psych nurse, rn social work, styrene dehydration reactor operator, teacher, recreation officer, immigration case worker)? Give summary @ -No Was smoking cessation discussed for >3mins.? @ -No Was critical care preformed (if so, how long)? @ -No Were there social determinants of health that impacted care today? How? (Homelessness, low income, unemployed, alcoholism, drug addiction, transportation, low edu. Level, literacy, decrease access to med. care, senior living, rehab)? @ -No Was there de-escalation of care discussed even if they declined (Discuss DNR or withdrawal of care, Hospice)? DNR status @ -No What co-morbidities impacted this encounter? (DM, HTN, Smoking, COPD, CAD, Cancer, CVA, ARF, Chemo, Hep., AIDS, mental health diagnosis, sleep apnea, morbid obesity)? @ -None Was patient admitted / discharged? Hospital course, mention meds given and r oute, prescriptions, significant lab abnormalities, going to OR and other pertinent info. @ -44-year-old male with acute on chronic right shoulder pain. History suggestive of possible remote rotator cuff injury. Distal pulses intact, normal senior director finance strength. Patient had not taken any pain medication. He will be prescribed a short course of Motrin. He should follow-up with orthopedics regarding the chronicity of this symptom. Undiagnosed new problem with uncertain prognosis? @ -No Drug Therapy requiring intensive monitoring for toxicity (Heparin, Nitro, Insulin, Cardizem)? @ -No Were any procedures done? @ -No Diagnosis/symptom? @ -[Shoulder pain Acute, or Chronic, or Acute on Chronic? @ -Acute on chronic Uncomplicated (without systemic symptoms) or Complicated (systemic symptoms)? @ -Default Side effects of treatment? @ -No Exacerbation, Progression, or Severe Exacerbation? @ -No Poses a threat to life or bodily function? How? (Chest pain, [place], [place], pneumonia, PE, COPD, DKA, ARF, appy, cholecystitis, CVA, Diverticulitis, Homicidal, Suicidal, threat to staff... and all critical care pts) @ -No Disposition Clinical Impression: Strain of shoulder Disposition: HOME SELF-CARE Condition: Good Instructions (If sedation given, give patient instructions): Shoulder Sprain (ED) Prescriptions: Ibuprofen [Motrin] 600 mg PO Q8HR PRN #24 tab PRN Reason: Pain Is patient prescribed a controlled substance at d/c from ED?: No Referrals: Juan Carlos Blanchard MD [Primary Care Provider] - 1-2 days Alfredito Russo MD [Medical Doctor] - 1-2 days Time of Disposition: 07:45
[2024-09-10] MEDS: KETOROLAC 15 MG/ML 1 ML VIAL IM STA (07:21)
--- NOTE | 2024-09-10 07:36 | XR ---
EXAMINATION TYPE: XR shoulder complete RT DATE OF EXAM: 09/10/2024 7:27 AM COMPARISON: None CLINICAL INDICATION: Male, 44 years old with history of pain; PHH, pain TECHNIQUE: XR shoulder complete RT; examined in AP, internally rotated and scapular Y projections. FINDINGS: No evidence of acute osseous pathology, joint dislocation, or soft tissue swelling. The remaining po rtions of the visualized chest are unremarkable. Calcification near the insertion of supraspinatus te ndon seen on one view. IMPRESSION: 1. No acute osseous pathology. 2. Calcification near the rotator cuff correlate for chronic calcified tendinosis. Consider MRI. [facility], , 09/10/2024 7:34 AM
== END 2024-09-10 07:50 | disposition home or self-care (01) ==
LOC: EC 06:58
DX: S46.911A Strain of unspecified muscle, fascia and tendon at shoulder and upper arm level, right arm, initial encounter (principal); F17.200 Nicotine dependence, unspecified, uncomplicated; X50.0XXA Overexertion from strenuous movement or load, initial encounter
CPT/HCPCS: 73030; 99283; 96372; J1885